=== PATIENT | female | born 1980 | race Caucasian/White ===

== ENCOUNTER 2018-11-19 17:13 | Outpatient (CLI) | payer MEDICAID ==
[~2018-11-19] VITALS: Ht 157.5 cm; Wt 90.0 kg
[~2018-11-19 17:13] MED LIST: ALBU8.5H8 INH; FLUT9.9S NASAL; GUAI473L22 PO; PRED20TA PO; PSEU30TA38 PO
[2018-11-19 17:40] VITALS: Ht 157.5 cm; Wt 90.0 kg
[2018-11-19] MEDS ORDERED: CALC-143 PO (18:07)
[2018-11-19] MEDS ORDERED: FERR134T PO (18:07)
[2018-11-19] MEDS ORDERED: PREN-93 PO (18:07)
--- NOTE | 2018-11-19 19:05 | PN ---
Triage Information Date/Time Reason for visit: Increased movement Weeks of Gestation Patient is 38-year-old 5 para 4 at 29 weeks and 4 days of gestation with estimated date of delivery January 31, 2019 She presents with chief complaint of increased movement Patient denies uterine contractions, denies vaginal bleeding or leaking fluid /Para 5 para 4 Diabetes: none Hypertention: none Objective Heart Rate: 140's Heart Rate Comments heart rate tracing appropriate for gestational age Contractions: None Results/Medications Imaging Results PROCEDURE: OB ultrasound for biophysical profile CLINICAL INDICATION: Increased movement. TECHNIQUE: Multiple sonographic images of the pelvis were obtained. Transabdominal view of the gravid uterus are available for review. The images were reviewed on a PACS workstation. COMPARISON: 09/20/2018. FINDINGS: breathing movement = 2/2 tone = 2/2 motion = 2/2 Quantitative amniotic fluid volume = 2/2 ARIEL = 8.6 cm Single live intrauterine with cardiac activity at 165 beats per minute. There is a posterior fundal placenta without previa or abruption. IMPRESSION: 1. Single living intrauterine gestation in cephalic position. 2. Biophysical profile = 8/8. 3. ARIEL = 8.6 cm. RPTAT: [facility] Physician Laurence Date Time Electronically viewed and signed by Physician Laurence on 11/19/2018 17:5 6 JH/ CC: PARK VALLE MD [id number] Disposition: Discharge Assessment/Plan Patient was instructed to follow-up with [facility] in 1 to 2 days ELOINA PURVIS MD Nov 19, 2018 19:05
--- NOTE | 2018-11-19 19:31 | TRIAGE ---
OB Triage Datetime Report Generated by CPN: 11/19/2018 19:30 Datetime: 11/19/2018 17:57 Maternal Assessment Level of Consciousness: Keenly Alert, Responsive DTR's/Clonus: DTRs 1+ Headache: Denies Blurred Vision: No Nausea/Vomiting: Denies RUQ Epigastric Pain: Denies Facial Edema: None Labor Evaluation Frequency: NONE Monitor Mode: External Resting Tone [place]: Relaxed Heart Rate FHR Baseline Rate: 150 Monitor Mode: External US Variability: Moderate 6-25 bpm Accelerations: 15X15 Decelerations: None Category: Category I Pain Assessment Pain Scale: 0 Pain Presence: None/Denies Pain Type: N/A Pain Goal: 3 Vaginal Exam Membrane Status: Intact Datetime: 11/19/2018 17:43 Assessment Type: Triage Maternal Assessment Level of Consciousness: Keenly Alert, Responsive DTR's/Clonus: DTRs 2+; No Clonus Headache: Denies Blurred Vision: No Respiratory Effort: Unlabored; Regular Rhythm; Equal Expansion Breath Sounds, Left: Clear and Equal Breath Sounds, Right: Clear and Equal Nausea/Vomiting: Denies RUQ Epigastric Pain: Denies Lower Extremities Edema: None Degree: None Upper Extremities Edema: None Degree: None Facial Edema: None Fall Risk Assessment History of Falling: (0) No Secondary Diagnosis: (0) No Ambulatory Aid: (0) Bedrest/Nurse Assist IV Therapy: (0) No Gait: (0) Normal/Bedrest/Immobile Mental Status: (0) Oriented to Own Ability Fall Score: 0 Fall Risk Score Definition: No Risk: No action required Datetime: 11/19/2018 17:25 Stage of : OB Triage Datetime: 11/19/2018 17:20 Stage of : OB Triage Datetime: 11/19/2018 17:05 Time of Arrival: 11/19/2018 17:05 EGA: 29.4 Arrived By: Ambulatory Arrived From: Home Chief Complaint: PT CAME IN C/O HIGHER INCEASED MOVEMENT Movement: Present Contractions: Denies/Absent Rupture of Membranes: Denies Vaginal Discharge: Denies Recent Sexual Intercouse: Denies Abdominal Trauma: Not Applicable Additional Patient Complaints: NONE Time Provider Notified: 11/19/2018 17:30 Provider Notified: LEONARD Initial Plan: NST AND SOFÍA
== END 2018-11-19 18:45 | disposition home or self-care (01) ==
LOC: OBT 17:13 → L-D 17:15 → OBT 18:45
PROVIDERS: ATTEND Obstetrics & Gynecology
DX: O36.5990 Maternal care for other known or suspected poor fetal growth, unspecified trimester, not applicable or unspecified (principal); O09.523 Supervision of elderly multigravida, third trimester; Z3A.29 29 weeks gestation of pregnancy
CPT/HCPCS: 76818; Z7500; G0463

== ENCOUNTER 2019-01-20 05:44 | Inpatient (IN) | payer MEDICAID ==
[2019-01-20] VITALS (10 sets, daily range): BP systolic 97–162; BP diastolic 52–74; PULSE 20–100; RESP 17–20; Ht 157.5 cm; Wt 92.6 kg
[~2019-01-20] VITALS: Ht 157.5 cm; Wt 92.6 kg
[~2019-01-20 05:44] MED LIST changes: -ALBU8.5H8 INH; +CALC-143 PO; +FERR134T PO; -FLUT9.9S NASAL; -GUAI473L22 PO; -PRED20TA PO; +PREN-93 PO; -PSEU30TA38 PO
[2019-01-20] MEDS ORDERED: LACTATED RINGER'S 1,000 ML IV SCH (06:16)
[2019-01-20] MEDS ORDERED: LACTATED RINGER'S 1,000 ML IV PRN (06:16)
[2019-01-20] MEDS ORDERED: OXYTOCIN 30 UNITS/LR 500 ML IV SCH (06:30)
[2019-01-20] MEDS ORDERED: OXYTOCIN 30 UNITS/LR 500 ML IV PRN ×2 (06:30→16:30)
[2019-01-20] MEDS ORDERED: MISOPROSTOL 200 MCG TAB PR PRN ×2 (06:30→16:30)
[2019-01-20] MEDS ORDERED: IBUPROFEN 600 MG TAB PO PRN (06:30)
[2019-01-20] MEDS ORDERED: METHYLERGONOVINE 0.2 MG INJ IM PRN (06:30)
[2019-01-20] MEDS ORDERED: BUTORPHANOL 2 MG INJ IV PRN ×2 (06:30)
[2019-01-20] MEDS ORDERED: LIDOCAINE 1% (MPF) 30 ML INJ INJ PRN (06:30)
[2019-01-20] MEDS: OXYTOCIN 30 UNITS/LR 500 ML IV SCH ×2 (13:51→16:32)
[2019-01-20] MEDS: CARBOPROST 250 MCG INJ IM PRN ×2 (14:01→14:16)
[2019-01-20] MEDS ORDERED: CEFAZOLIN 2 GM/50 ML (PMX) 50 ML IVPB ONE ×2 (14:16→14:30)
[2019-01-20] MEDS ORDERED: TRANEXAMIC ACID 1GM/100ML(PMX) 100 ML IVPB ONE (14:30)
[2019-01-20] MEDS ORDERED: MAGNESIUM SULFATE 4 GM/100 ML 100 ML IV SCH (15:00)
[2019-01-20] MEDS ORDERED: CA GLUCONATE (GM) 10% 10ML INJ IV PRN (15:00)
[2019-01-20] MEDS: MAGNESIUM SULFATE 20 GM/500 ML 500 ML IV SCH (15:37)
[2019-01-20] MEDS ORDERED: ACETAMINOPHEN 325 MG TAB PO PRN (16:30)
[2019-01-20] MEDS ORDERED: CARBOPROST 250 MCG INJ IM PRN (16:30)
[2019-01-20] MEDS ORDERED: WITCH HAZEL/GLYCERIN PAD PR PRN (16:30)
[2019-01-20] MEDS ORDERED: HYDROCODONE/APAP (5/325) TAB PO PRN (16:30)
[2019-01-20] MEDS ORDERED: DIBUCAINE 1% 30 GM OINT TOP PRN (16:30)
[2019-01-20] MEDS ORDERED: BENZOCAINE 20% 56 ML SPRAY TOP PRN (16:30)
[2019-01-20] MEDS: IBUPROFEN 600 MG TAB PO SCH (17:03)
[2019-01-20] MEDS: SENNA/DOCUSATE NA (8.6MG/50MG) TAB PO SCH (21:00)
[2019-01-20] MEDS: LACTATED RINGER'S 1,000 ML IV* SCH (23:18)
[2019-01-21] VITALS (16 sets, daily range): BP systolic 93–118; BP diastolic 49–81; PULSE 58–94; RESP 17–20
[2019-01-21] MEDS: IBUPROFEN 600 MG TAB PO SCH ×5 (00:20→23:40)
[2019-01-21] MEDS: LACTATED RINGER'S 1,000 ML IV* SCH ×2 (00:22→12:47)
[2019-01-21] MEDS: MAGNESIUM SULFATE 20 GM/500 ML 500 ML IV SCH ×2 (02:27→12:46)
[2019-01-21] MEDS: SENNA/DOCUSATE NA (8.6MG/50MG) TAB PO SCH ×2 (08:40→21:58)
[2019-01-21] MEDS: FERROUS SULFATE (EC) 325 MG TAB PO SCH (21:58)
[2019-01-22 04:36] VITALS: BP 115/70; PULSE 78; RESP 18
[2019-01-22] MEDS: IBUPROFEN 600 MG TAB PO SCH ×4 (06:00→23:44)
[2019-01-22 08:00] VITALS: BP 115/70; PULSE 64; RESP 18
[2019-01-22] MEDS ORDERED: DIPHTH/TET/ACEL PERTUSS (ADULT) 0.5 ML VIAL IM* ONE (09:00)
[2019-01-22] MEDS: SENNA/DOCUSATE NA (8.6MG/50MG) TAB PO SCH ×2 (10:21→21:28)
[2019-01-22] MEDS: FERROUS SULFATE (EC) 325 MG TAB PO SCH ×2 (10:21→21:29)
[2019-01-22 12:18] VITALS: BP 110/66; PULSE 69; RESP 17
[2019-01-22 16:00] VITALS: BP 108/63; PULSE 61; RESP 18
[2019-01-22 20:20] VITALS: BP 128/61; PULSE 61; RESP 18
[2019-01-23 04:10] VITALS: BP 106/49; PULSE 68; RESP 19
[2019-01-23] MEDS: IBUPROFEN 600 MG TAB PO SCH ×3 (05:43→17:34)
[2019-01-23 08:10] VITALS: BP 117/70; PULSE 69; RESP 18
[2019-01-23] MEDS: SENNA/DOCUSATE NA (8.6MG/50MG) TAB PO SCH (09:02)
[2019-01-23] MEDS: FERROUS SULFATE (EC) 325 MG TAB PO SCH (09:02)
[2019-01-23 12:00] VITALS: BP 118/72; PULSE 80; RESP 18
[2019-01-23 17:06] VITALS: BP 124/71; PULSE 76; RESP 18
== END 2019-01-23 18:55 | disposition home or self-care (01) | DRG 807 ==
LOC: OBT 05:44 → L-D 05:45 → OBT 06:16 → L-D 06:16 → PP1 16:11
PROVIDERS: ADMIT Obstetrics & Gynecology; ATTEND Obstetrics & Gynecology
PROC: 10E0XZZ Delivery of Products of Conception, External Approach (ICD-10-PCS; principal; 2019-01-20)
PROC: 0KQM0ZZ Repair Perineum Muscle, Open Approach (ICD-10-PCS; 2019-01-20)
DX: O14.14 Severe pre-eclampsia complicating childbirth (principal); Z37.0 Single live birth; O62.2 Other uterine inertia; Z3A.38 38 weeks gestation of pregnancy; O70.1 Second degree perineal laceration during delivery; O13.4 Gestational [pregnancy-induced] hypertension without significant proteinuria, complicating childbirth; O24.429 Gestational diabetes mellitus in childbirth, unspecified control
CPT/HCPCS: 62322; 76816; 76818; 80053; 81001; 82962; 83735; 84560; 85025; 85610; 85730; 86592; 86850; 86900; 86901; 87340; 99464; G0463; J0595; J0690; J2590; J3475; J7120